=== PATIENT | female | born 1995 | race American Indian/Alaskan Native ===

== ENCOUNTER 2017-05-19 23:53 | Emergency (ER) | payer OTHER ==
[2017-05-19 23:54] VITALS: BMI 22.1
[2017-05-20] MEDS ORDERED: Albuterol-Ipratrop 3 mg / 0.5 (3 ml) UD IH STA (00:19)
--- NOTE | 2017-05-20 00:19 | ED PDOC ---
Arrival/HPI - General Chief Complaint: Flu-like Symptoms Time Seen by Provider: 05/20/17 00:14 Historian: Patient - History of Present Illness Narrative History of Present Illness (Text): 05/20/17 00:16 This 22 yo female presents to this ED c/o sore throat x 2 days, and fever, cough , congestion x 1 day. Time/Duration: Other (see hpi) Context: Home Past Medical History - Provider Review Nursing Documentation Reviewed: Yes - Past History Past History: No Previous - Infectious Disease Hx of Infectious Diseases: None - Tetanus Immunization Tetanus Immunization: Up to Date - Cardiac Hx Cardiac Disorders: No - Pulmonary Hx Respiratory Disorders: Yes Hx Asthma: Yes - Neurological Hx Neurological Disorder: No - HEENT Hx HEENT Disorder: No - Renal Hx Renal Disorder: No - Endocrine/Metabolic Hx Endocrine Disorders: No - Hematological/Oncological Hx Blood Disorders: No - Integumentary Hx Dermatological Disorder: No - Musculoskeletal/Rheumatological Hx Musculoskeletal Disorders: No - Gastrointestinal Hx Gastrointestinal Disorders: No - Genitourinary/Gynecological Hx Genitourinary Disorders: No - Psychiatric Hx Psychophysiologic Disorder: No Hx Anxiety: Yes Hx Depression: Yes Hx Substance Use: Yes (cannabis 4 days ago) - Past Surgical History Past Surgical History: No Previous - Anesthesia Hx Anesthesia: No - Suicidal Assessment Feels Threatened In Home Enviroment: No Family/Social History - Physician Review Nursing Documentation Reviewed: Yes Family/Social History: No Known Family HX Smoking Status: Never Smoked Hx Alcohol Use: Yes Hx Substance Use: Yes (cannabis 4 days ago) Hx Substance Use Treatment: No Allergies/Home Meds Allergies/Adverse Reactions: Allergies corn Allergy (Verified 01/13/17 02:18) NAUSEA peanut Allergy (Verified 05/20/17 00:05) NAUSEA scallops Allergy (Verified 05/20/17 00:05) NAUSEA sesame seed Allergy (Verified 05/20/17 00:05) NAUSEA shrimp Allergy (Verified 05/20/17 00:05) NAUSEA soy Allergy (Verified 05/20/17 00:05) NAUSEA walnut Allergy (Verified 05/20/17 00:05) NAUSEA wheat Allergy (Verified 05/20/17 00:05) NAUSEA seasonal Allergy (Unknown, Uncoded 05/20/17 00:05) CONGESTION Review of Systems - Review of Systems Constitutional: Fevers. absent: Fatigue, Weight Change, Night Sweats Eyes: Normal ENT: Sore Throat, Rhinorrhea. absent: Epistaxis Respiratory: absent: SOB, Cough, Sputum, Wheezing Cardiovascular: Normal. absent: Chest Pain, Palpitations, Orthopnea, Syncope Gastrointestinal: Normal. absent: Abdominal Pain, Nausea, Vomiting Genitourinary Female: Normal. absent: Dysuria, Frequency, Hematuria Musculoskeletal: Normal. absent: Back Pain Skin: Normal Neurological: Normal Endocrine: Normal Hemo/Lymphatic: Normal Psychiatric: Normal Physical Exam Vital Signs Temp Pulse Resp BP Pulse Ox 05/20/17 00:45 101.5 F H 05/20/17 00:05 100.5 F H 119 H 20 131/82 97 Temperature: Afebrile Blood Pressure: Normal Pulse: Regular Respiratory Rate: Normal Appearance: Positive for: Well-Appearing, Non-Toxic, Comfortable Pain Distress: None Mental Status: Positive for: Alert and Oriented X 3 - Systems Exam Head: Present: Atraumatic, Normocephalic Pupils: Present: PERRL Extroacular Muscles: Present: EOMI Conjunctiva: Present: Normal Mouth: Present: Moist Mucous Membranes Neck: Present: Normal Range of Motion Respiratory/Chest: Present: Clear to Auscultation, Good Air Exchange. No: Respiratory Distress, Accessory Muscle Use Cardiovascular: Present: Regular Rate and Rhythm, Normal S1, S2. No: Murmurs Abdomen: Present: Normal Bowel Sounds. No: Tenderness, Distention, Peritoneal Signs Back: Present: Normal Inspection Upper Extremity: Present: Normal Inspection. No: Cyanosis, Edema Lower Extremity: Present: Normal Inspection. No: Edema Neurological: Present: GCS=15, CN II-XII Intact, Speech Normal Skin: Present: Warm, Dry, Normal Color. No: Rashes Psychiatric: Present: Alert, Oriented x 3, Normal Insight, Normal Concentration Medical Decision Making - Lab Interpretations Lab Results: Lab Results 05/20/17 00:26: Urine Color Yellow, Urine Appearance Clear, Urine pH 6.5, Ur Specific [place] 1.015, Urine Protein Negative, Urine Glucose (UA) Negative, Urine Ketones >=80, Urine Blood Trace-intact H, Urine Nitrate Negative, Urine Bilirubin Negative, Urine Urobilinogen 0.2, Ur Leukocyte Esterase Negative, Urine RBC 0 - 2, Urine WBC 0 - 2, Ur Epithelial Cells 4 - 5, Urine Bacteria Rare , Urine HCG, Qual Negative - RAD Interpretation Radiology Orders: 05/20/17 00:19 CHEST TWO VIEWS (PA/LAT) [RAD] Stat - Medication Orders Current Medication Orders: Discontinued Medications Albuterol/Ipratropium (Duoneb 3 Mg/0.5 Mg (3 Ml) Ud) 3 ml IH STAT STA Stop: 05/20/17 00:20 Last Admin: 05/20/17 00:45 Dose: 3 ml Albuterol/Ipratropium (Duoneb 3 Mg/0.5 Mg (3 Ml) Ud) Confirm Administered Dose 3 ml .ROUTE .STK-MED ONE Stop: 05/20/17 00:24 Last Admin: 05/20/17 00:46 Dose: Sodium Chloride (Sodium Chloride 0.9%) 1,000 mls @ 999 mls/hr IV .Q1H1M STA Stop: 05/20/17 01:15 Last Admin: 05/20/17 00:45 Dose: 999 mls/hr Ibuprofen (Motrin Tab) 600 mg PO STAT STA Stop: 05/20/17 00:16 Last Admin: 05/20/17 00:45 Dose: 600 mg Disposition/Present on Arrival - Present on Arrival Any Indicators Present on Arrival: No History of DVT/PE: No History of Uncontrolled Diabetes: No Urinary Catheter: No History of Decub. Ulcer: No History Surgical Site Infection Following: None - Disposition Have Diagnosis and Disposition been Completed?: Yes Diagnosis: Bronchitis Disposition: HOME/ ROUTINE Disposition Time: 02:11 Patient Plan: Discharge Condition: GOOD Discharge Instructions (ExitCare): Acute Bronchitis (ED) Additional Instructions: Call private doctor for follow up visit in 1-2 days. Take medication as instructed. return to emergency if symptoms worsen. Drink plenty of fluids daily Prescriptions: Azithromycin [Z-Jaydon] 250 mg PO DAILY #4 tab Promethazine/Codeine [Codeine/Promethazine 10 MG/5 Ml-6.25 MG/5 Ml] 5 ml PO Q6H PRN #120 ml PRN Reason: Cough Referrals: Cass York MD [Staff Provider] - Follow up with primary Forms: WORK NOTE
[2017-05-20] MEDS ORDERED: Albuterol-Ipratrop 3 mg / 0.5 (3 ml) UD ONE (00:23)
[2017-05-20] MEDS: Sodium Chloride 0.9% 1,000 ML IV STA ×2 (00:45→02:33)
[2017-05-20 00:51] LABS: PH,URINE 6.5 (4.7-8.0); URINE BILIRUBIN NEGATIVE (NEGATIVE); URINE BLOOD TRACE-INTACT (NEGATIVE); URINE GLUCOSE (UA) NEGATIVE (NEGATIVE); URINE KETONE >=80 mg/dL (NEGATIVE); URINE LEUKOCYTE ESTERASE NEGATIVE Leu/uL (NEGATIVE); URINE PROTEIN NEGATIVE mg/dL (<30 mg/dL); URINE UROBILINOGEN 0.2 E.U./dL (<1 E.U./dL)
[2017-05-20 01:00] LABS: URINE APPEARANCE CLEAR (CLEAR); URINE COLOR YELLOW (YELLOW)
[2017-05-20 01:07] LABS: URINE BACTERIA RARE (NEG); URINE RBC 0 - 2 /hpf (0-2); URINE WBC 0 - 2 /hpf (0-6)
[2017-05-20] MEDS ORDERED: Promethazine/Cod 6.25mg-10mg/5ml Syr UD PO STA (02:10)
[2017-05-20 02:25] VITALS: BP 115/75; PULSE 89; RESP 18; TEMP 98.8; O2SAT 100
--- NOTE | 2017-05-20 09:27 | RAD ---
HISTORY: cough COMPARISON: 12/30/2016 TECHNIQUE: Chest PA and lateral FINDINGS: LUNGS: No active pulmonary disease. PLEURA: No significant pleural effusion identified. No pneumothorax apparent. CARDIOVASCULAR: Normal. OSSEOUS STRUCTURES: No significant abnormalities. VISUALIZED UPPER ABDOMEN: Normal. OTHER FINDINGS: None. IMPRESSION: No active disease.
== END 2017-05-20 02:35 | disposition home or self-care (01) ==
LOC: ED 23:53
DX: J40 Bronchitis, not specified as acute or chronic (principal)
CPT/HCPCS: 71020; 81001; 81025; 84703; 87086; 96360; 96361; 99284; J7040